=== PATIENT | female | born 1945 | race Caucasian/White ===

== ENCOUNTER → 2017-06-23 | Outpatient (CLI) | payer MEDICARE, BC ==
[~2017-06-23] MED LIST: ASPI-1471 PO; CALC-18 PO; CYAN25004; LUTE40CA PO; METF-410 PO; METO50TA19 PO; OMEP-125 PO; ONDA4TAB PO; ROS10 PO; VALS1TAB10 PO
--- NOTE | 2017-06-23 11:34 | RADIOLOGY IMAGING REPORT ---
FACILITY: [facility] PATIENT NAME: TAWNYA POTTER : [id number] MR: [id number] V: [id number] EXAM DATE: ORDERING PHYSICIAN: ARTHUR KO TECHNOLOGIST: Mary Lainez PROCEDURE:BILATERAL DIGITAL SCREENING MAMMOGRAM WITH CAD ASSISTED INTERPRETATION & 3D TOMOSYNTHESIS COMPARISON:Prior mammograms 05/29/16, 04/25/15, 12/25/13, 09/01/12, 08/24/12. INDICATIONS:screening FINDINGS: A small amount of fibroglandular tissue is seen throughout the breasts. The parenchymal pattern has remained stable allowing for difference in mammographic technique & patient positioning. There is no evidence of malignant appearing mass, malignant appearing calcifications or other secondary sign of malignancy in either breast. A biopsy clip is seen in the medial inferior portion of the Right breast unchanged. DIAGNOSTIC CATEGORY 2--BENIGN FINDING. RECOMMENDATIONS: ROUTINE MAMMOGRAM AND CLINICAL EVALUATION. IMPRESSION: BIRADS 2: Benign finding No significant abnormality is seen. Dictated by: Sabine Mireles M.D. on 06/23/2017 at 10:29 Transcribed by: BERTO on 06/23/2017 at 11:11 Approved by: Sabine Mireles M.D. on 06/23/2017 at 11:33 [facility]
== END ==
LOC: MAMO 02:16
PROVIDERS: ATTEND Physician Assistant
DX: Z12.31 Encounter for screening mammogram for malignant neoplasm of breast (principal)
CPT/HCPCS: 77063; 77067

== ENCOUNTER 2017-10-21 01:42 | Day surgery (SDC) | payer MEDICARE, BC ==
[~2017-10-21] VITALS: Ht 157.5 cm; Wt 83.5 kg
[~2017-10-21 01:42] MED LIST changes: +CALC-93 PO; +CETI10CA8 PO; +CHOL10005 PO; +LUTE20TA PO; -METF-410 PO; +METF-411 PO
[2017-10-21] MEDS ORDERED: LIDOCAINE/SOD BICARB 8.4% SYR ID ONE (06:45)
[2017-10-21] MEDS ORDERED: NORMOSOL R SOLN(*) 1000 ML BAG 1,000 ML IV PRN (06:45)
[2017-10-21 06:55] VITALS: BP 142/90
[2017-10-21] MEDS ORDERED: PROPOFOL EMUL(*) 10MG/ML 20 ML 20 ML ONE ×2 (07:24→07:51)
[2017-10-21 08:00] VITALS: BP 113/94
[2017-10-21 08:12] VITALS: BP 117/67
[2017-10-21 08:36] VITALS: BP 132/81
[2017-10-21 08:38] VITALS: BP 137/73
== END 2017-10-21 08:51 | disposition home or self-care (01) ==
LOC: OR 01:42
PROVIDERS: ATTEND Family Medicine
DX: Z12.11 Encounter for screening for malignant neoplasm of colon (principal); Z86.010 Personal history of colon polyps; E11.9 Type 2 diabetes mellitus without complications
CPT/HCPCS: 00812; 36416; 82948; G0121; J2704